=== PATIENT | male | born 1995 ===

== ENCOUNTER 2017-08-07 04:14 | Emergency (ER) | payer SELFPAY ==
[2017-08-07 04:17] VITALS: O2SAT 98
--- NOTE | 2017-08-07 04:21 | C.PDOC ---
History Of Present Illness 21 year old male presents to the emergency department with complaints of an allergic reaction which started while he was playing card games and eating pizza with his friends. Time Seen by Provider: 08/07/17 04:20 Chief Complaint (Nursing): Allergic Reaction History Per: Patient History/Exam Limitations: no limitations Onset/Duration Of Symptoms: Hrs Current Symptoms Are (Timing): Still Present Context: Food Possible Cause: Food Associated Symptoms: Skin Rash Home/EMS Treatment: None Severity: Moderate Pain Scale Rating Of: 4 Past Medical History Reviewed: Historical Data, Nursing Documentation, Vital Signs Vital Signs: Last Vital Signs Temp 98.6 F 08/07/17 05:11 Pulse 76 08/07/17 05:11 Resp 18 08/07/17 05:11 BP 128/79 08/07/17 05:11 Pulse Ox 98 08/07/17 05:11 - Medical History PMH: No Chronic Diseases Surgical History: No Surg Hx Family History: States: No Known Family Hx - Social History Hx Alcohol Use: Yes Hx Substance Use: Yes - Immunization History Hx Tetanus Toxoid Vaccination: No Hx Influenza Vaccination: No Hx Pneumococcal Vaccination: No Review Of Systems ENT: Negative for: Other (tongue swelling) Respiratory: Negative for: Shortness of Breath Skin: Positive for: Rash Physical Exam - Physical Exam Appears: Non-toxic, No Acute Distress Skin: Warm, Dry, Rash (diffuse urticarial rash) Head: Atraumatic, Normacephalic Eye(s): bilateral: Normal Inspection, PERRL, EOMI Oral Mucosa: Moist Tongue: No Swelling Throat: No Erythema, No Exudate Neck: Supple Chest: Symmetrical, Deformity Cardiovascular: No Murmur Respiratory: No Rales, No Rhonchi, No Wheezing Gastrointestinal/Abdominal: Soft, No Tenderness, No Guarding, No Rebound Neurological/Psych: Oriented x3, Normal Speech, Normal Cognition ED Course And Treatment O2 Sat by Pulse Oximetry: 98 (RA) Pulse Ox Interpretation: Normal Progress Note: Plan: Benadryl 25mg IVP. Pepcid 40mg PO. Solu-Medrol 125mg IVP. NaCl IV Fluids Reevaluation Time: 05:33 Reassessment Condition: Improved Disposition Counseled Patient/Family Regarding: Studies Performed, Diagnosis, Need For Followup, Rx Given - Disposition Referrals: [facility] [Outside] [facility] [Outside] Disposition: HOME/ ROUTINE Disposition Time: 04:21 Condition: FAIR Additional Instructions: Please return if symptoms recur. Please also use benadryl, pepcid and claritin Prescriptions: Epinephrine [Epipen] 0.3 mg IJ ONCE PRN #2 auto.injct PRN Reason: Anaphylaxis Prednisone [Deltasone] 20 mg PO DAILY #5 tablet Instructions: Food Allergy, Hives (DC) Forms: [facility] (Portuguese) - Clinical Impression Clinical Impression: Allergic reaction - Scribe Statement The provider has reviewed the documentation as recorded by the Scribe (Salomón Burnette) Provider Attestation: All medical record entries made by the Scribe were at my direction and personally dictated by me. I have reviewed the chart and agree that the record accurately reflects my personal performance of the history, physical exam, medical decision making, and the department course for this patient. I have also personally directed, reviewed, and agree with the discharge instructions and disposition.
[2017-08-07 04:24] VITALS: BMI 29.7
[2017-08-07] MEDS ORDERED: DiphenhydrAMINE 50 mg/ml Inj IVP STA (04:24)
[2017-08-07] MEDS ORDERED: Sodium Chloride 0.9% 1,000 ML IV ONE (04:24)
[2017-08-07] MEDS ORDERED: DiphenhydrAMINE 50 mg/ml Inj ONE ×2 (04:28→04:39)
[2017-08-07 05:12] VITALS: BP 128/79; PULSE 76; RESP 18; TEMP 98.6
== END 2017-08-07 05:44 | disposition home or self-care (01) ==
LOC: C.ER 04:14
DX: T78.40XA Allergy, unspecified, initial encounter (principal)
CPT/HCPCS: 96361; 96374; 96375; 99284; J1200; J2930; J7040